=== PATIENT | male | born 1990 | race Caucasian/White ===

== ENCOUNTER → 2016-11-19 | Outpatient (CLI) | payer BC ==
--- NOTE | 2016-11-19 11:35 | KCIC ---
Testicular ultrasound History: Right testicular pain x1 week. 3 episodes of pain in last year. Comparison: None. Technique: Multiple grayscale, color flow Doppler and Doppler spectral analysis images of the scrotum are obtained. Findings: Right testicle measures 4.6 x 1.7 x 3.5 cm. Right testicle demonstrates normal parenchymal echogenicity. The right epididymis is unremarkable. Left testicle measures 5 x 2.3 x 2.9 cm. Left testicle demonstrates normal parenchymal echogenicity. The left epididymis is unremarkable. There is no hydrocele or varicocele. Scrotal hyperemia or swelling are not seen. Doppler imaging demonstrates normal flow to both testicles, without evidence of torsion. IMPRESSION: Normal testicular ultrasound. Electronically signed by: Tk Gresham MD (11/19/2016 11:30 AM) [id number]
== END | disposition home or self-care (01) ==
LOC: KCIC US 09:57
PROVIDERS: ATTEND Nurse Practitioner Family
DX: N50.811 Right testicular pain (principal)
CPT/HCPCS: 76870